=== PATIENT | male | born 1960 | race Caucasian/White ===

== ENCOUNTER → 2018-04-30 | Day surgery (SDC) | payer BC ==
[~2018-04-30] MED LIST: CEFTRIAXONE SOD 1 GM VIAL ONE; DEXAMETHASONE SOD PHOS INJ 4 MG/ML VIAL ONE; FENTANYL CITRATE/PF 100MCG/2 ML INJ ONE; KETOROLAC TROMETHAMINE 30 MG/ML VIAL ONE; ONDANSETRON HCL INJ 2 MG/ML VIAL ONE; PROPOFOL IV EMULSION 10 MG/ML 20 ML VIAL ONE; SEVOFLURANE INHAL SOLN 250 ML PEN BTL ONE; TRAMADOL/APAP 37.5MG-325MG TAB ONE
--- OUTSIDE RECORDS SUMMARY | 2018-04-30 11:17 | XMS REPORT | Clinical Summary ---
Author Author [facility] Address Unknown Phone Unavailable Care Team Providers Care Shine Worker Name Role Phone Antonio Matamoros DO PCP Allergies Not on File Current Medications Not on file Active Problems Not on file Encounters Date Type Specialty Care Team Description 04/22/2018 [facility] Radiology Paul Grey Disorder of scrotum Encounter 04/17/2018 [facility]cribe Access Paul Grey Disorder of scrotum Orders (Primary Dx) 03/13/2018 [facility] Radiology Antonio Matamoros DO Other noninflammatory Encounter disorders of the testis 03/12/2018 Transcribe Access Antonio Matamoros DO Other noninflammatory Orders disorders of the testis (Primary Dx) after 04/29/2017 Social History Tobacco Use Types Packs/Day Years Used Date Never Assessed Sex Assigned at Date Recorded Not on file Last Filed Vital Signs Not on file Plan of Treatment Health Maintenance Due Date Last Done Comments COLON CANCER SCREENING 2010 SHINGRIX VACCINE (#1) 2010 INFLUENZA VACCINE 02/05/2018 Procedures Procedure Name Priority Date/Time Associated Diagnosis Comments CT ABDOMEN PELVIS W Routine 04/22/2018 Disorder of scrotum Results for this CONTRAST 8:57 AM CDT procedure are in the results section. ESTIMATED GFR Routine 04/22/2018 Results for this 8:40 AM CDT procedure are in the results section. POC CREATININE Routine 04/22/2018 Results for this 8:40 AM CDT procedure are in the results section. US SCROTAL Routine 03/13/2018 Other noninflammatory Results for this 2:06 PM CDT disorders of the testis procedure are in the results section. after 04/29/2017 Results * CT Abdomen Pelvis W Contrast (04/22/2018 8:57 AM) Narrative Performed At EXAMINATION:CT ABDOMEN PELVIS W CONTRAST [facility] CLINICAL HISTORY:N50.9 Disorder of male genital organsunspecified, N50.9 COMPARISON:None. TECHNIQUE:CT of the abdomen and pelvis with intravenous contrast. CT imaging was performed with iterative reconstruction techniques and/or automated exposure control to reduce radiation dose. FINDINGS: LOWER THORAX:Mild bibasilar atelectasis. HEPATOBILIARY:No focal hepatic lesions. No biliary ductal dilation. SPLEEN:Calcified splenic granulomas. PANCREAS:No focal masses or ductal dilation. Likely small duodenal diverticulum abutting the pancreatic head. ADRENALS:No adrenal nodules. KIDNEYS:Bilateral pelviectasis, right greater than left. Kidneys are otherwise unremarkable. GI TRACT:There are a few colonic diverticula. Normal appendix. No obstruction. PERITONEUM/RETROPERITONEUM:No free air or fluid. No lymphadenopathy. PELVIC ORGANS/BLADDER:The scrotum is incompletely imaged. There is a 2.6 cm fluid density lesion within the right hemiscrotum, partially imaged. No pelvic sidewall adenopathy. No pelvic free fluid. BONES AND SOFT TISSUES:Degenerative changes in the spine. IMPRESSION: 1.Scrotum is incompletely imaged and suboptimally evaluated on CT. There is a fluid density lesion within the right hemiscrotum, nonspecific. May represent an epididymal cyst or spermatocele. Please correlate with prior scrotal ultrasound. 2.Additional findings as above [facility]-[id number] Procedure Note [facility], Radiology Results Incoming - 04/22/2018 9:24 AM CDT EXAMINATION: CT ABDOMEN PELVIS W CONTRAST CLINICAL HISTORY: N50.9 Disorder of male genital organs unspecified, N50.9 COMPARISON: None. TECHNIQUE: CT of the abdomen and pelvis with intravenous contrast. CT imaging was performed with iterative reconstruction techniques and/or automated exposure control to reduce radiation dose. FINDINGS: LOWER THORAX: Mild bibasilar atelectasis. HEPATOBILIARY: No focal hepatic lesions. No biliary ductal dilation. SPLEEN: Calcified splenic granulomas. PANCREAS: No focal masses or ductal dilation. Likely small duodenal diverticulum abutting the pancreatic head. ADRENALS: No adrenal nodules. KIDNEYS: Bilateral pelviectasis, right greater than left. Kidneys are otherwise unremarkable. GI TRACT: There are a few colonic diverticula. Normal appendix. No obstruction. PERITONEUM/RETROPERITONEUM: No free air or fluid. No lymphadenopathy. PELVIC ORGANS/BLADDER: The scrotum is incompletely imaged. There is a 2.6 cm fluid density lesion within the right hemiscrotum, partially imaged. No pelvic sidewall adenopathy. No pelvic free fluid. BONES AND SOFT TISSUES: Degenerative changes in the spine. IMPRESSION: 1. Scrotum is incompletely imaged and suboptimally evaluated on CT. There is a fluid density lesion within the right hemiscrotum, nonspecific. May represent an epididymal cyst or spermatocele. Please correlate with prior scrotal ultrasound. 2. Additional findings as above [facility]-[id number] Performing Organization Address City/[facility]/Zipcode Phone Number [facility] [address] [place] [address] * Estimated GFR (04/22/2018 8:40 AM) Estimated GFR 74 mL/min/1.73 m2 [facility] DEPARTMENT OF Comment: PATHOLOGY AND [employer] MEDICINE rpretation G1 >=90 Normal or high G2 60-89Mildly decreased [id number] Mildly to moderately decreased [id number] Moderately to severely decreased G4 15-29Severely decreased G5 <15Kidney failure The eGFR was calculated using the Chronic Kidney Disease Epidemiology Collaboration (CKD-EPI) equation. Interpretation is based on recommendations of the National Kidney Foundation-Kidney Disease Outcomes Quality Initiative (NKF-KDOQI) published in 2014. Specimen Blood Performing Organization Address [facility] Phone Number [address] [place] [address] PATHOLOGY AND [employer] MEDICINE * POC creatinine (04/22/2018 8:40 AM) POC creatinine 1.1 0.7 - 1.2 mg/dl [facility] DEPARTMENT OF Comment: PATHOLOGY AND Meter ID: [id number] [employer]: Nicky Tom Specimen Blood Performing Organization Address [facility] Cent[facility] Phone Number [facility] DEPARTMENT [facility] [place] [address] PATHOLOGY AND [employer] MEDICINE * US Scrotal (03/13/2018 2:06 PM) Narrative Performed At PROCEDURE:US SCROTAL [facility] CLINICAL HISTORY:N44.8 Other noninflammatory disorders of the testis, N44.8 COMPARISON:None. TECHNIQUE: Multiple B-mode grayscale 2-D echo tomograms were performed of the testes and both hemiscrota in sagittal and transverse orientations. Interrogation with color-flow and 2-D spectral Doppler was also performed. FINDINGS: The echotexture of the right and left testes is homogeneous. The right testicle measures 4.3 cm length by 3.6 cm x 2.4 cm. The left testicle measures 4.1 cm length by 3.7 cm x 2 cm. Color flow and pulse wave spectral Doppler confirm arterial flow to both testes. The head of the right epididymis measures not visualized due to the presence of the large cyst and the head of the left epididymis measures 1.6 cm x 8.5 mm. A massive complex right epididymal head cyst is noted with septations and low-level echoes with a cyst measuring 2.5 cm x 1.9 cm x 2.5 cm. Within the head of the left epididymis is a rim calcified lesion which is solid and measures 9.1 mm diameter. No fluid is demonstrated in either hemiscrotum. No skin thickening is demonstrated of the right or left hemiscrotum. The right hemiscrotal skin thickness measures 7 mm and the left hemiscrotal skin thickness measures 5.2 mm. IMPRESSION: Abnormal study. No evidence of testicular torsion or epididymitis. Dystrophic calcification in left epididymal head which could be due to chronic epididymitis versus old trauma with dystrophic calcification. Large right epididymal head cyst. [id number] . Procedure Note Interface, Radiology Results Incoming - 03/13/2018 4:29 PM CDT PROCEDURE: US SCROTAL CLINICAL HISTORY: N44.8 Other noninflammatory disorders of the testis, N44.8 COMPARISON: None. TECHNIQUE: Multiple B-mode grayscale 2-D echo tomograms were performed of the testes and both hemiscrota in sagittal and transverse orientations. Interrogation with color-flow and 2-D spectral Doppler was also performed. FINDINGS: The echotexture of the right and left testes is homogeneous. The right testicle measures 4.3 cm length by 3.6 cm x 2.4 cm. The left testicle measures 4.1 cm length by 3.7 cm x 2 cm. Color flow and pulse wave spectral Doppler confirm arterial flow to both testes. The head of the right epididymis measures not visualized due to the presence of the large cyst and the head of the left epididymis measures 1.6 cm x 8.5 mm. A massive complex right epididymal head cyst is noted with septations and low- level echoes with a cyst measuring 2.5 cm x 1.9 cm x 2.5 cm. Within the head of the left epididymis is a rim calcified lesion which is solid and measures 9.1 mm diameter. No fluid is demonstrated in either hemiscrotum. No skin thickening is demonstrated of the right or left hemiscrotum. The right hemiscrotal skin thickness measures 7 mm and the left hemiscrotal skin thickness measures 5.2 mm. IMPRESSION: Abnormal study. No evidence of testicular torsion or epididymitis. Dystrophic calcification in left epididymal head which could be due to chronic epididymitis versus old trauma with dystrophic calcification. Large right epididymal head cyst. [id number] . Performing Organization Address City/State/Zipcode Phone Number [facility] [address] [place] [address] after 04/29/2017 Insurance Payer Benefit Subscriber ID Type Phone Address Plan / Group BCBS BCBS xxxxxxxxxxxx PPO CHOICE PPO/ANGELICA [id number] PPO
--- NOTE | 2018-04-30 16:52 | Operative Report ---
DATE OF PROCEDURE: April 30, 2018 PREOPERATIVE DIAGNOSES 1. Right spermatocele. 2. Left spermatocele. POSTOPERATIVE DIAGNOSES 1. Right spermatocele. 2. Left hydrocele. OPERATION PERFORMED: 1. Right spermatocelectomy. 2. Left hydrocelectomy. FERRYBOAT PILOT: . ANESTHESIA: General. INDICATIONS: Mr. Newberry is a 58-year-old male who presented with a chief complaint of bilateral scrotal masses. Scrotal ultrasound performed showed bilateral spermatoceles. DETAILS OF PROCEDURE: This patient was placed on the table in the supine position and was prepped and draped in a sterile manner after satisfactory anesthesia. A longitudinal incision over the right hemiscrotum incising the skin and the dartos muscle. The tunica vaginalis was then incised longitudinally. The spermatic cord and the testicles were delivered outside scrotal sac. Attention was now directed to the large right spermatocele on the globus major. Using sharp dissection, using Metzenbaum scissors and fine the spermatocele was completely shelled out. The base of the spermatocele was then cauterized and hemostasis was very adequate. Attention was now directed to reattachment of the globus major to the upper pole of the testicle and this was done continuously using 4-0 Vicryl so as to avoid any bleeding. This was done without difficulty. The testicle and the spermatic cord were delivered inside the scrotal sac. Attention was directed to the wound closure and the dartos muscle was approximated continuously using 3-0 Vicryl. The skin was approximated interruptedly using 4-0 Vicryl. Attention was now directed to the left side and again another incision over the anterolateral border of the left hemiscrotum was done incising the skin and the dartos muscle. The tunica vaginalis was incised longitudinally. The testicle and the spermatic cord were delivered and there was about 50 to 60 mL of hydrocele fluid that was aspirated. Attention was now directed to the fixing of the hydrocele. The tunica vaginalis was then bottle necked behind the spermatic cord. This was done using 4-0 Vicryl. Hemostasis was obtained all through with electrocautery. The spermatic cord and the left testicle were delivered inside the scrotal sac. The dartos muscle was approximated continuously using 3-0 Vicryl and the skin was approximated interruptedly using 4-0 Vicryl. Sterile dressing was applied. The patient tolerated the procedure well and was taken to the recovery room in satisfactory condition. Plans for this patient is to be discharged on Keflex 500 mg one 3 times a day for one week. Ultracet tablet one every 4 to 6 hours p.r.n. and was given 40. He was instructed on keeping his to the scrotum. Job#: [id number]
[2018-04-30 17:15] VITALS: BP 126/82
== END | disposition home or self-care (01) ==
LOC: OR 11:14
PROVIDERS: ATTEND Specialist
DX: N43.41 Spermatocele of epididymis, single (principal); N43.3 Hydrocele, unspecified; Z01.810 Encounter for preprocedural cardiovascular examination
CPT/HCPCS: 54840; 55040; 88304; 93005; J0696; J1100; J1885; J2405